=== PATIENT | female | born 1995 | race Caucasian/White ===

== ENCOUNTER 2017-08-07 19:32 | Emergency (ER) | payer MEDICAID ==
[~2017-08-07] VITALS: Ht 152.4 cm; Wt 65.0 kg
[2017-08-08] MEDS ORDERED: SODIUM CHLORIDE 0.9% 1,000 ML IV ONE (00:13)
[2017-08-08] MEDS ORDERED: KETOROLAC 30MG/ML VIAL IV STA (00:13)
[2017-08-08 00:41] LABS: INR 1.1; PROTHROMBIN TIME 11.6 sec (9.4-11.6)
[2017-08-08 00:42] LABS: CHLORIDE 105 mEq/L (98-107)
[2017-08-08 00:44] LABS: BASOPHILS % 0.4 % (0.0-2.0); EOSINOPHILS % 0.4 % (0.0-5.0); HEMATOCRIT. 40.1 % (36.0-48.0); LYMPHOCYTES % 28.4 % (20.0-50.0); MEAN CORPUSCULAR HEMOGLOBIN 28.8 pg (28.0-32.0); MEAN CORPUSCULAR VOLUME 82.3 fL (81.0-99.0); MEAN PLATELET VOLUME 7.3 fl (7.4-10.4); MONOCYTES % 8.1 % (2.0-8.0); NEUTROPHILS % 62.7 % (40.0-76.0); PLATELET 341 x1000/uL (130-400); RED BLOOD CELL COUNT 4.87 mill/uL (4.2-5.4); RED CELL DISTRIBUTION WIDTH 14.2 % (11.6-14.6)
[2017-08-08 00:53] LABS: CLARITY URINE CLOUDY (CLEAR); COLOR URINE YELLOW (YELLOW); KETONES URINE TRACE (NEGATIVE); LEUKOCYTE ESTERASE URINE NEGATIVE (NEGATIVE); NITRITE URINE NEGATIVE (NEGATIVE); OCCULT BLOOD URINE TRACE (NEGATIVE); PH URINE 5.5 (4.5-8.0); PROTEIN URINE NEGATIVE (NEGATIVE); SPECIFIC GRAVITY URINE 1.028 (1.005-1.030)
[2017-08-08 03:09] VITALS: BP 109/72
== END 2017-08-08 03:21 | disposition home or self-care (01) ==
LOC: ER 21:18
DX: K80.62 Calculus of gallbladder and bile duct with acute cholecystitis without obstruction (principal)
CPT/HCPCS: 36415; 76705; 80053; 81003; 81025; 83690; 85025; 85610; 96361; 96374; 99285; J1885; J7030; Z7610

== ENCOUNTER 2018-01-23 11:03 | Emergency (ER) | payer MEDICAID ==
[~2018-01-23] VITALS: Ht 160 cm; Wt 56.0 kg
[2018-01-23] MEDS ORDERED: FAMOTIDINE 20MG/2ML VIAL IV STA (11:38)
[2018-01-23] MEDS ORDERED: SODIUM CHLORIDE 0.9% 1,000 ML IV ONE (11:38)
[2018-01-23] MEDS ORDERED: ONDANSETRON HCL 4MG/2ML VIAL IV STA (11:38)
[2018-01-23] MEDS ORDERED: MORPHINE SULFATE 4 MG/ML CPJ (NOT FOR IM USE) IV STA (11:38)
[2018-01-23 14:20] VITALS: BP 93/55
[2018-01-23 14:33] LABS: CHLORIDE 104 mEq/L (98-107)
[2018-01-23 14:34] LABS: BASOPHILS % 0.2 % (0.0-2.0); EOSINOPHILS % 0.1 % (0.0-5.0); HEMATOCRIT. 41.6 % (36.0-48.0); HEMOGLOBIN. 14.1 g/dL (12.0-16.0); LYMPHOCYTES % 9.8 % (20.0-50.0); MEAN CORPUSCULAR HEMOGLOBIN 29.4 pg (28.0-32.0); MEAN CORPUSCULAR VOLUME 86.4 fL (81.0-99.0); MONOCYTES % 2.4 % (2.0-8.0); NEUTROPHILS % 87.5 % (40.0-76.0); PLATELET 328 x1000/uL (130-400); RED BLOOD CELL COUNT 4.81 mill/uL (4.2-5.4)
[2018-01-23 14:37] LABS: ETHANOL BLOOD < 10 mg/dL
[2018-01-23 14:40] LABS: CLARITY URINE CLOUDY (CLEAR); COLOR URINE YELLOW (YELLOW); HCG SCREEN NEGATIVE; KETONES URINE NEGATIVE (NEGATIVE); LEUKOCYTE ESTERASE URINE NEGATIVE (NEGATIVE); NITRITE URINE NEGATIVE (NEGATIVE); OCCULT BLOOD URINE NEGATIVE (NEGATIVE); PROTEIN URINE NEGATIVE (NEGATIVE); SPECIFIC GRAVITY URINE 1.026 (1.005-1.030); UROBILINOGEN URINE 0.2 E.U./dL (0.2-1.0)
== END 2018-01-23 15:55 | disposition home or self-care (01) ==
LOC: ER 11:36
DX: K80.20 Calculus of gallbladder without cholecystitis without obstruction (principal); N39.0 Urinary tract infection, site not specified; R11.2 Nausea with vomiting, unspecified; R03.0 Elevated blood-pressure reading, without diagnosis of hypertension
CPT/HCPCS: 36415; 71045; 76705; 80053; 81003; 84703; 85025; 96361; 96374; 96375; 99285; G0482; J2270; J2405; J3490; J7030